=== PATIENT | female | born 1955 | race Caucasian/White ===

== ENCOUNTER → 2017-04-27 | Outpatient (CLI) | payer MEDICARE | LOC: CARD 08:38 | PROVIDERS: ATTEND Family Medicine | DX: I73.9 Peripheral vascular disease, unspecified (principal) | CPT/HCPCS: 93925 ==

== ENCOUNTER → 2017-05-12 | Outpatient (CLI) | payer OTHER ==
[~2017-05-12] MED LIST: SODIUM CHLORIDE 0.9% 500ML 1,000 ML ONE
[2017-05-12 14:03] LABS: CREATININE, SERUM 1.43 mg/dL (0.57-1.11)
--- NOTE | 2017-05-14 12:38 | Diagnostic Imaging Report ---
PROCEDURE: CTA ABD/PEL/BILATERAL LOWER EXT RUNOFF W \T\ W/O CONTRAST COMPARISON:None. INDICATIONS:PAD BILATERAL EXTREMITY WEAKNESS TECHNIQUE: Multi-detector CT technology with Dose Reduction was employed. Images were obtained after the administration of 100 cc of Omnipaque 350 intravenously. For optimization of anatomic evaluation, multiplanar and volume rendering reconstructions were performed. Advanced 3-D off-line postprocessing were performed on a dedicated stand-alone workstation under the direct supervision of the interpreting physician. FINDINGS: Abdominal aorta and iliac vessels: Scattered atherosclerotic changes are present throughout the abdominal aorta and bilateral lower extremity runoff. Minimal amount of plaque is noted around the origins of the great vessels. The superior mesenteric, inferior mesenteric, and celiac arteries are patent. Bilateral renal arteries are patent. Dense atherosclerotic calcifications are present around the distal abdominal aorta and at the level of the bifurcation. 50% stenosis is present in the distal aorta and bilateral common iliac arteries. The common, internal, and external iliac arteries are patent bilaterally. Femoral-popliteal vessels: Multiple short segment stenoses, without significant narrowing, are present. The common, superficial, and profunda femoral arteries are patent. Infrapopliteal vessels: Multiple short segment stenoses, without segmental narrowing, are present in the popliteal and infrapopliteal vessels bilaterally. The above the knee and below the knee segments of the popliteal artery are patent. The anterior tibial, posterior tibial, and peroneal arteries are patent. Patent three vessel runoff is present in the feet bilaterally. Abdominal and Pelvic soft-tissues and organs: Lung bases: No focal consolidation or parenchymal mass. No pleural effusion or pneumothorax. Liver: Normal parenchyma. No focal mass. Biliary: Normal gallbladder. No intrahepatic or extrahepatic biliary duct dilation. Spleen: No splenomegaly. No focal mass. Pancreas: Normal enhancement. No pancreatic duct dilation. No focal mass or peripancreatic soft tissue inflammatory changes. Adrenal Glands: No adrenal nodules. Kidneys: No obstructing calculi, hydronephrosis, or solid mass. GI: The stomach, small bowel, and colon are unremarkable. No air-fluid levels. Normal appendix. A moderate amount of retained feces limits intraluminal evaluation of the colon. Diverticulosis without evidence of diverticulitis. Peritoneum/Retroperitoneum: No pneumoperitoneum or free intraperitoneal fluid. No lymphadenopathy. No drainable fluid collection. Reproductive Organs: Hysterectomy. Right ovarian cyst. Normal left ovary. Musculoskeletal: No acute sclerotic or lucent lesion. Degenerative changes of the lumbar spine. CONCLUSION: Distal aortoiliac atherosclerotic calcifications with resulting 50% stenosis in the bilateral common iliac arteries. Patent three-vessel runoff to the feet bilaterally. Dictated by: Donta Brown M.D. on 05/14/2017 at 12:38 Electronically approved by: Donta Brown M.D. on 05/14/2017 at 12:38
== END ==
LOC: CT 13:23
PROVIDERS: ATTEND Family Medicine
DX: I73.9 Peripheral vascular disease, unspecified (principal)
CPT/HCPCS: 36415; 75635; 82565; 84520; J7040

== ENCOUNTER 2022-08-10 08:00 | Outpatient (RCR) | payer MEDICARE, BC | END 2022-08-14 | LOC: WCC 08:00 → MERGE 08:00 → EDSTATUS 11:20 | PROVIDERS: ATTEND Internal Medicine Infectious Disease | DX: E11.621 Type 2 diabetes mellitus with foot ulcer (principal); L97.512 Non-pressure chronic ulcer of other part of right foot with fat layer exposed ==

== ENCOUNTER 2022-12-11 12:09 | Outpatient (RCR) | payer MEDICARE, BC ==
[~2022-12-11 12:09] MED LIST changes: +LIDOCAINE/PRILOCAINE 2.5-2.5% KIT ONE; +MUPIROCIN 2% OINT 22 GM TUBE ONE; -SODIUM CHLORIDE 0.9% 500ML 1,000 ML ONE
[2022-12-11] MEDS ORDERED: MUPIROCIN 2% OINT 22 GM TUBE ONE (13:52)
[2022-12-11] MEDS ORDERED: LIDOCAINE VISC 2% SOLN 15 ML UDC ONE (13:52)
== END 2022-12-15 ==
LOC: WCC 12:09
PROVIDERS: ATTEND Internal Medicine Infectious Disease
DX: E11.621 Type 2 diabetes mellitus with foot ulcer (principal); L97.512 Non-pressure chronic ulcer of other part of right foot with fat layer exposed; L97.518 Non-pressure chronic ulcer of other part of right foot with other specified severity

== ENCOUNTER 2023-01-08 11:20 | Outpatient (RCR) | payer MEDICARE, BC ==
[~2023-01-08 11:20] MED LIST changes: -MUPIROCIN 2% OINT 22 GM TUBE ONE
== END 2023-01-14 ==
LOC: WCC 11:20
PROVIDERS: ATTEND Internal Medicine Infectious Disease
DX: E11.621 Type 2 diabetes mellitus with foot ulcer (principal); L97.518 Non-pressure chronic ulcer of other part of right foot with other specified severity; L97.512 Non-pressure chronic ulcer of other part of right foot with fat layer exposed